=== PATIENT | male | born 1990 | race African-American/Black ===

== ENCOUNTER 2023-11-19 01:54 | Emergency (ER) | payer MEDICAID, OTHER ==
[~2023-11-19] VITALS: Ht 180.3 cm; Wt 88.0 kg
[2023-11-19 01:56] VITALS: BP 132/82; PULSE 76; RESP 16; TEMP 98; O2SAT 95
== END 2023-11-19 04:25 | disposition left against medical advice (07) ==
LOC: ER 01:54
DX: R07.89 Other chest pain (principal); Z53.21 Procedure and treatment not carried out due to patient leaving prior to being seen by health care provider
CPT/HCPCS: 93005; 99281